=== PATIENT | female | born 1930 | race Caucasian/White ===

== ENCOUNTER 2019-04-06 17:14 | Emergency (ER) | payer MEDICARE, OTHER ==
[~2019-04-06] VITALS: Ht 165.1 cm; Wt 60.3 kg
--- NOTE | 2019-04-06 17:29 | NUR ---
at bedside to examine patient.
[2019-04-06] MEDS ORDERED: TDAP DIPH,PERTUSS,TET VAC/PF 0.5 ML DISP.SYRIN IM ONE ×2 (17:45)
[2019-04-06] MEDS ORDERED: LIDOCAINE 1%-EPI 1:100,000 20 ML VIAL IJ ONE (17:45)
--- NOTE | 2019-04-06 18:13 | NUR ---
Xylochaine with epi administered by physician who is currently stitching right knee laceration.
[2019-04-06] MEDS ORDERED: NEOMY/BACITRA/POLYMYXIN B OINT UD PACKET TP ONE ×2 (18:37→18:45)
--- NOTE | 2019-04-06 18:42 | NUR ---
right knee with stitches in place area medicated and covered with surgical dressing. DCD instructions given to patient, instructed to come back as indicated for stitches removal. Pt. verbalized understanding.
== END 2019-04-06 18:55 | disposition home or self-care (01) ==
LOC: ER 17:17
DX: S81.011A Laceration without foreign body, right knee, initial encounter (principal); Z88.0 Allergy status to penicillin; Z88.2 Allergy status to sulfonamides; Z88.1 Allergy status to other antibiotic agents; W19.XXXA Unspecified fall, initial encounter; Y93.89 Activity, other specified; Y92.89 Other specified places as the place of occurrence of the external cause; Y99.8 Other external cause status
CPT/HCPCS: 12001; 73564; 90471; 90715; 99283; J3490; A4217; A4663